=== PATIENT | male | born 1980 | race Caucasian/White ===

== ENCOUNTER 2023-12-24 08:09 | Inpatient (IN) | payer OTHER, SELFPAY ==
[2023-12-23 20:00] VITALS: BP 153/99; BMI 30.3
[2023-12-23 20:14] LABS: Urine Albumin Trace (Neg - Trace); Urine Bilirubin Negative (Negative); Urine Character Clear (Clear); Urine Color Amber; Urine Glucose Negative (Negative); Urine Ketone 2+ (Negative); Urine Leukocyte Negative (Negative); Urine Nitrite Negative (Negative); Urine Occult Blood Trace (Negative); Urine Urobilinogen 1+ (Neg - 1+)
[2023-12-23 20:22] LABS: Urine Mucus Moderate; Urine Squamous Cell 0-2 /LPF (Few)
[2023-12-23 20:23] LABS: Urine Bacteria Few (Negative); Urine Red Blood Cell 0-2 /HPF (0-2); Urine White Cell 0-2 /HPF (0-5)
[2023-12-23] MEDS: DILAUDID 1 MG IV ×2 (20:40→22:26)
[2023-12-23] MEDS: ZOFRAN 4 MG IV (20:41)
[2023-12-23 21:00] LABS: % Basophils 0.8 % (0-2); % Eosinophils 1.3 % (0-6); % Immature Granulocytes 0.3 % (0-0.5); % Lymphocytes 15.9 % (20.5-51.1); % Monocytes 9.4 % (1.7-9.3); % Neutrophils 72.3 % (42.2-75.2); Absolute Basophils 0.1 10^3/uL (0-0.2); Absolute Eosinophils 0.2 10^3/uL (0-0.7); Absolute Monocytes 1.2 10^3/uL (0.1-0.6); Absolute Neutrophils 8.9 10^3/uL (1.4-6.5); Hematocrit 48.4 % (39.0-52.0); Hemoglobin 16.8 g/dL (13.0-18.0); Mean Corp Hgb Conc. 34.7 g/dL (33.0-37.0); Mean Corpuscular Hgb 30.9 pg (27.0-31.0); Mean Platelet Volume 11.3 fL (7.4-10.4); Nucleated Red Blood Cells % 0 % (-); Platelet Count 232 10^3/uL (130-400); Red Blood Cell Count 5.44 10^6/uL (4.70-6.10); Red Cell Dist. Width 12.8 % (11.5-14.5); White Blood Cell Count 12.3 10^3/uL (4.8-10.8)
[2023-12-23 21:14] LABS: ALT (SGPT) 51 U/L (0-50); AST (SGOT) 26 U/L (17-59); Alkaline Phosphatase 86 U/L (38-126); Blood Urea Nitrogen 16 mg/dl (9-20); Calcium 10.3 mg/dl (8.4-10.2); Carbon Dioxide 26 mmol/L (22-30); Chloride 98 mmol/L (98-107); Estimated Creatinine Clearance > 125 ml/min; Glucose 120 mg/dl (70-99); Lipase 105 U/L (23-300); Sodium 136 mmol/L (135-145); Total Bilirubin 2.9 mg/dl (0.2-1.3); Total Protein 8.5 g/dl (6.3-8.2); eGFR > 60.00
[2023-12-23 21:25] LABS: Troponin I < 0.012 ng/ml
[2023-12-23 21:50] VITALS: BP 141/84
--- NOTE | 2023-12-23 22:29 | ED.GENMED ---
History of Present Illness
General
Chief Complaint: Flank Pain
Source: patient
Exam Limitations: none
Time Seen by Provider: 12/23/23 20:21
Travel History
Have you had any contact with someone who has COVID-19?: No
Do you have any symptoms of coronavirus? Fever > 100 degrees, chills, cough, shortness of breath, sore throat, loss of taste or smell, muscle aches, or headache?: No
History of Present Illness
History of Present Illness:
43-year-old male who presents with pain in the right flank/right chest wall area that radiates up to his right shoulder. Patient states he began to not feel very well 2 days ago. He is a little bit flushed. States he did not have much pain at
first but then last night began to get some pain. Was seen at urgent care and had a chest x-ray. He had a mildly elevated white count. Patient states his pain is persistent today was a little bit worse. Pain is worse when he takes deep breath he
does feel little bit short of breath. Has a little diarrhea. He does travel a good amount for work in the car. Occasionally vapes.
Past History
Past History
ED Past Medical History: Other (Migraines)
Social History
Alcohol: Daily
Phy Exam
Physical Exam
Physical Exam:
CONSTITUTIONAL Patient alert and oriented to person, place and time. Moderate pain distress. Vital signs reviewed.
HEAD atraumatic, normocephalic.
EYES eyelids normal to inspection, Pupils equally round and reactive to light, Extraocular muscles intact, Conjunctiva normal, Sclera normal.
NECK normal range of motion, Trachea midline, no jugular venous distention.
RESPIRATORY CHEST No respiratory distress noted, Chest expansion equal
CARDIOVASCULAR regular and tachycardic.
ABDOMEN abdomen nontender, Bowel sounds normal. No distention.
BACK normal inspection, no obvious deformities, no CVA tenderness
UPPER EXTREMITY range of motion normal, Motor strength normal, no cyanosis, no edema.
LOWER EXTREMITY range of motion normal, Motor strength normal, no cyanosis, no edema.
NEURO Speech normal, No focal motor deficits, Marion coma scale 15, Memory normal, Cranial Nerves intact to screening exam.
SKIN skin warm, dry, and normal in color.
PSYCHIATRIC patient oriented to person place and time, Normal affect.
Course
Orders/Labs/Results
Orders:
Orders
12/23/23 20:08
Urinalysis Reflex To Culture Urgent
Date Specimen was Collected: 12/23/23
Time Specimen was Collected: 20:06
Urine Microscopic Reflex Cult Urgent
12/23/23 20:33
Electrocardiogram (*1) Stat
Reason for Study: Other
Other Reason for Exam: chest pain
CT Pe/abd/pel W Urgent
Reason For Exam: R cp, recent travel
Cardiac Monitoring- Treatment ONCE
EKG- Treatment ONCE
HYDROmorphone [Dilaudid] 1 mg IV NOW STA
Ondansetron Injectable [Zofran] 4 mg IV NOW STA
12/23/23 20:54
Complete Blood Count/With Diff Urgent
Comprehensive Metabolic Panel Urgent
Lipase Urgent
Troponin I Urgent
12/23/23 22:24
HYDROmorphone [Dilaudid] 1 mg .ROUTE .STK-MED ONE
12/23/23 22:25
HYDROmorphone [Dilaudid] 1 mg IV NOW STA
12/23/23 22:26
PTT Urgent
Prothrombin Time Urgent
12/23/23 22:31
Heparin 9,000 units IV NOW STA
Nursing to Place Non Medication Order As Directed
Physician Order: PTT 6 hours after initial start of Heparin infusion
Above order entered?: Yes
12/23/23 22:45
Heparin 33585 Units/250 ml 25,000 units in 250 ml IV PER PROTOCOL
Weight to be used for heparin protocol in kilograms (kg):: 112.945
Protocol:: DVT/PE
PTT Goal Range to be used:: PTT 73 to 111 seconds
Order type:: Initial
INITIAL Infusion Dose (UNITS/KG/hr) & then follow protocol:: 18 units/kg/hr
Infusion Dose in UNITS/hr & then follow protocol (UNITS/hr):: 2,000
INFUSION RATE in mL/hr & then follow protocol (mL/hr):: 20
For DVT/PE algorithm, re-bolus for low PTT?: Yes
PTT less than or equal to 64 seconds:: Re-bolus 80 units/kg (max 10,000units). Increase by 500 units/hr
(+ 5mL/hr)
PTT 64.1 to 72.9 seconds:: Re-bolus 40 units/kg (max 5,000 units). Increase by 200 units/hr
(+ 2mL/hr)
PTT 73 to 111 seconds:: Target Range. No change in rate.
PTT 111.1 to 130.9 seconds:: Decrease rate by 200 units/hr (- 2 mL/hr)
PTT 131 to 199.9 seconds:: HOLD for 1 hr. Then decrease by 400 units/hr (- 4mL/hr)
PTT greater than or equal to 200 seconds:: HOLD for 2 hrs & Notify Provider. Then decrease by 500 units/hr
(- 5mL/hr)
Lab follow-up:: Each change, PTT q6h until 2 consecutive are therapeutic. Then
PTT daily.
12/23/23 22:49
Heparin [id number] Units/250 ml 25,000 units in 250 ml .ROUTE .STK-MED
12/23/23 22:59
Heparin 9,000 units IV PRN PRN
12/23/23 23:00
Heparin 4,500 units IV PRN PRN
12/23/23 23:16
Admit/Transfer Patient As Directed
Co-Sign Provider:
Level of Care: Observation services
Assign to:: Telemetry
Physician / Group: bryan
Diagnosis: PE
Reason for Telemetry: Chest Pain syndromes
Date to Stop Telemetry: 12/25/23
Time to Stop Telemetry: 11:00
12/23/23 23:17
Code Status As Directed
Resuscitation Status: Full Code
12/24/23 00:45
Echo 2D MMode Color/Doppler Routine
Reason for Study: RH strain, PE
Consult Notification Routine
Specialty to Notify: Pulmonary
PULMONARY CONSULT Routine
Consulting Provider: Blu Barnett
Was physician already notified: No
Reason for consult: PE
VTE Contraindication Routine
VTE Mechanical Device Contraindication: Medical Contraindication
Pharmocologic Contraindication: Medical Contraindication
Heparin Protocol- PTT Orders As Directed
PTT per Heparin protocol: -Obtain CBC and baseline PTT - if not already collected.
-Obtain PTT 6 hours from start of infusion. Then, every 6 hours until 2 consecutive
PTT's are therapeutic. Then, PTT Daily.
-With each rate change, obtain PTT every 6 hours until 2 consecutive PTT's are
therapeutic. Then, PTT Daily.
Activity As Directed
Activity Level: As Tolerated
Notify MD As Directed
Notify physician if: PTT is greater than or equal to 200.
Vital Signs As Directed
Frequency: Per unit guidelines
Venous Doppler Lwr Ext Bilat [US Periph Venous LOWER Ext Fredy] Urgent
Comment:
Reason For Exam: PE
12/24/23 06:00
Complete Blood Count/With Diff IN AM
Comprehensive Metabolic Panel IN AM
12/24/23 Dinner
Regular
12/25/23 06:00
Complete Blood Count/No Diff Q2D
Comment: notify provider: Platelet count < 130,000 or decrease by 50% from baseline
12/25/23 11:00
DC Protocol for Telemetry ONCE
12/27/23 06:00
Complete Blood Count/No Diff Q2D
Comment: notify provider: Platelet count < 130,000 or decrease by 50% from baseline
12/29/23 06:00
Complete Blood Count/No Diff Q2D
Comment: notify provider: Platelet count < 130,000 or decrease by 50% from baseline
12/31/23 06:00
Complete Blood Count/No Diff Q2D
Comment: notify provider: Platelet count < 130,000 or decrease by 50% from baseline
01/02/24 06:00
Complete Blood Count/No Diff Q2D
Comment: notify provider: Platelet count < 130,000 or decrease by 50% from baseline
01/04/24 06:00
Complete Blood Count/No Diff Q2D
Comment: notify provider: Platelet count < 130,000 or decrease by 50% from baseline
01/06/24 06:00
Complete Blood Count/No Diff Q2D
Comment: notify provider: Platelet count < 130,000 or decrease by 50% from baseline
01/08/24 06:00
Complete Blood Count/No Diff Q2D
Comment: notify provider: Platelet count < 130,000 or decrease by 50% from baseline
Abnormal Lab Results
12/23/23 12/23/23
20:08 20:54
WBC 12.3 H 10^3/uL
(4.8-10.8)
MPV 11.3 H fL
(7.4-10.4)
Absolute Neuts (auto) 8.9 H 10^3/uL
(1.4-6.5)
Absolute Monos (auto) 1.2 H 10^3/uL
(0.1-0.6)
Lymphocytes % 15.9 L %
(20.5-51.1)
Monocytes % 9.4 H %
(1.7-9.3)
Glucose 120 H mg/dl
(70-99)
Calcium 10.3 H mg/dl
(8.4-10.2)
Total Bilirubin 2.9 H mg/dl
(0.2-1.3)
ALT 51 H U/L
(0-50)
Total Protein 8.5 H g/dl
(6.3-8.2)
Urine Ketones 2+ A
(Negative)
Ur Occult Blood Reflex Trace A
(Negative)
Urine Bacteria (Reflex) Few A
(Negative)
12/23/23 20:54
12/23/23 20:54
Vital Signs
Initial and Last Documented VS:
Initial Vital Signs
Temp Pulse Resp BP Pulse Ox
98.7 F 108 20 153/99 98
12/23/23 20:00 12/23/23 20:00 12/23/23 20:00 12/23/23 20:00 12/23/23 20:00
Last Documented Vital Signs
Temp Pulse Resp BP Pulse Ox
98.5 F 94 19 141/92 95
12/24/23 00:43 12/24/23 00:43 12/24/23 00:43 12/24/23 00:43 12/24/23 00:43
MDM/Problems Addressed
Differential Diagnosis Includes:
Pneumothorax, pneumonia, UTI/pyelonephritis, nephrolithiasis
MDM/Problems Addressed:
Bilateral pulmonary emboli
*Radiology
Radiology exam reviewed: preliminary read by ED provider (Bilateral pulmonary emboli noted)
*Pulse Oximetry
Patient hypoxic: no
*EKG
Interpreted by ED Provider?: Yes
Interpretation: abnormal
Rate: tachycardiac
Rhythm: sinus
Ischemia: non-specific ST changes
*Shoelace Tipping Machine Operator Interpretation
Rate: tachycardiac
Interpretation: abnormal
Rhythm: sinus
*Critical Care Note
Total Time (30-74mins, 75-104mins- exclusive of procedures): 40 minutes
Data Reviewed
Source: patient and significant other
Prescriptions/Medications Considered But Not Given:
Considered IR evaluation but no right heart strain by CT
Patient Management
Discussion with other providers: Hospitalist and Radiologist
Escalation/DeEscalation of care consider admission/obs:
Patient adds that he has had some left calf pain on reassessment. Bilateral pulmonary emboli. Hemodynamically stable. Admit
ED Attending Note
-
Portions of this chart may have been created with voice recognition software.� Occasional wrong word or��sound alike� substitutions may have occurred due to the inherent limitations of voice recognition software.
Discharge Plan
Departure
Patient Disposition: Admit
Date of Disposition: 12/23/23
Time of Disposition: 22:34
Admit to: Telemetry
Presentation/result/management discussed w/ accepting MD/DO: Hospitalist
Discharge Problem:
Bilateral pulmonary embolism
Interventions
Interventions:
*Risk Screen - Suicide Last Done: 12/23/23 20:00
*General Assessment Last Done: 12/24/23 00:32
*Neglect/Abuse Screening Last Done: 12/23/23 20:00
ED- Fall Risk Assessment Last Done: 12/23/23 20:00
*ED COVID-19 Vaccine History Last Done: 12/24/23 00:32
*Nursing Disposition Last Done: 12/24/23 00:32
XQ-Smraal-Pmmebtkxre Assessment Last Done: 12/23/23 20:46
ED-Male Genitourinary Assessment Last Done: 12/23/23 20:46
Discharge Date and Time
Discharge Date/Time: 12/24/23 00:33
[2023-12-23 22:47] LABS: APTT 25.6 Sec (23.4-35.0); INR 1.12; PT 14.4 Sec (11.4-14.6)
[2023-12-23] MEDS: HEPARIN 9000 UNITS IV (23:18)
[2023-12-23] MEDS: HEPARIN 25000 UNITS/250 ML IV (23:19)
--- NOTE | 2023-12-23 23:22 | HPS.HSE ---
Addendum entered and electronically signed by Urmila Rao MD 12/23/23 23:33:
History of migraines.
Original Note:
Family Physician
-
Family Physician: Jf Jacques
Chief Complaint
-
right flank pain
History of Present Illness
43-year-old male no past medical history presenting with right flank pain radiating up to his chest over the past few days. Pain is worse with deep breaths. He is having trouble taking a full breath. Denies dizziness or syncope. He has felt sick
over the past 2 days and did have diarrhea over the past 2 days which was particularly bad today. He went to urgent care today due to the pain and had chest x-ray performed which was negative. He was started on azithromycin today which he thinks
exacerbated the diarrhea. He did have some left lower extremity cramping behind the knee over the past week.
He did have sushi 2 days ago. Denies any abdominal pain associated with the diarrhea.
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 No recent surgeries. His grandfather had a stroke but no other family history of blood clots.
He does drink at least 2 drinks 4 times a week. He did used to smoke as a teenager and vape intermittently but quit a year ago.
Medical History
Past Medical History
Past Medical History: Reports None
Past Surgical History: Reports Other (hernia surgery, )
Social History
Tobacco: Former Smoker
Alcohol: Occasional
Drug: None
Family History
Family History: Not pertinent
Allergies / Home Medications
Allergies reflects when Allergies were last updated in [employer].
Home Medications with original date entered in [employer]
Allergy/Medication List:
Allergies
Allergy/AdvReac Type Severity Reaction Status Date / Time
No Known Allergies Allergy Unverified 12/23/23 19:59
Home Medications
azithromycin 250 mg tablet 0 mg PO .COMPLEX 12/23/23
ibuprofen 200 mg capsule 600 mg PO Q6H PRN mild pain/fever 12/23/23
Review of Systems
-
History Source: Patient
A 12 point ROS was completed and negative except as noted: Yes
Constitutional: Reports No Symptoms
EENT: Reports No Symptoms
Respiratory: Reports See HPI
Cardiac: Reports No Symptoms
Abdomen/GI: Reports No Symptoms
: Reports No Symptoms
Musculoskeletal: Reports No Symptoms
Skin: Reports No Symptoms
Neurological: Reports No Symptoms
Endocrine: Reports No Symptoms
Hematologic/Lymphatic: Reports No Symptoms
Psych: Reports No Symptoms
Physical Exam
Vital Signs
Vital Signs
Temp Pulse Resp BP Pulse Ox
98.7 F 84 14 141/84 96
12/23/23 20:00 12/23/23 21:50 12/23/23 21:50 12/23/23 21:50 12/23/23 21:50
Physical Exam
General: Well Developed, Well Nourished and No Apparent Distress
HEENT: NormoCephalic, Moist mucous membranes and Atraumatic
Respiratory: Clear
Cardiac: S1/S2 and Regular Rhythm; No Murmur or Rub
GI: Soft, Non Tender, Non Distended and Normal Bowel Sounds; No Organomegaly
Rectal: Deferred by Provider
Musculoskeletal: No Clubbing, No Cyanosis and No Edema
Skin: No Rash
Neuro: Nonfocal/grossly intact
Laboratory Results
-
12/23/23 20:54
12/23/23 20:54
Laboratory Results
PT 14.4 Sec (11.4-14.6) 12/23/23 22:26
INR 1.12 12/23/23 22:26
APTT 25.6 Sec (23.4-35.0) 12/23/23 22:26
Total Bilirubin 2.9 mg/dl (0.2-1.3) H 12/23/23 20:54
AST 26 U/L (17-59) 12/23/23 20:54
ALT 51 U/L (0-50) H 12/23/23 20:54
Alkaline Phosphatase 86 U/L (38-126) 12/23/23 20:54
Troponin I < 0.012 ng/ml 12/23/23 20:54
Lipase 105 U/L (23-300) 12/23/23 20:54
Data Reviewed
-
Lab Data: Labs Reviewed by me
Old Records: Reviewed
Impression/Plan
-
IMPRESSION:
PLAN:
# Extensive bilateral pulmonary emboli, no obvious provoking factor
# Likely left lower extremity DVT
-Troponin negative
-No evidence of right heart strain on CT scan
-Heparin drip
-Check venous ultrasound
-Check echo
-Pulmonology consulted
# Gastroenteritis exacerbated by antibiotic today
-CT abdomen pelvis shows fluid-filled colon consistent with diarrhea
-Continue to monitor for diarrhea
-Stop azithromycin
Full code
DVT prophylaxis-heparin drip
Regular diet
[2023-12-24 00:43] VITALS: BP 141/92; BMI 30.4
[2023-12-24] MEDS: DILAUDID 0.5 MG IV ×3 (00:54→09:52)
[2023-12-24 03:02] VITALS: BP 121/82
[2023-12-24 05:38] LABS: % Basophils 0.8 % (0-2); % Eosinophils 1.6 % (0-6); % Immature Granulocytes 0.3 % (0-0.5); % Lymphocytes 23.5 % (20.5-51.1); % Monocytes 10.2 % (1.7-9.3); % Neutrophils 63.6 % (42.2-75.2); Absolute Basophils 0.1 10^3/uL (0-0.2); Absolute Eosinophils 0.2 10^3/uL (0-0.7); Absolute Lymphocytes 2.7 10^3/uL (1.2-3.4); Absolute Monocytes 1.2 10^3/uL (0.1-0.6); Absolute Neutrophils 7.3 10^3/uL (1.4-6.5); Hematocrit 44.9 % (39.0-52.0); Hemoglobin 15.4 g/dL (13.0-18.0); Mean Corp Hgb Conc. 34.3 g/dL (33.0-37.0); Mean Corpuscular Hgb 30.7 pg (27.0-31.0); Mean Corpuscular Volume 89.4 fL (80.0-94.0); Mean Platelet Volume 11.2 fL (7.4-10.4); Nucleated Red Blood Cells % 0 % (-); Platelet Count 212 10^3/uL (130-400); Red Blood Cell Count 5.02 10^6/uL (4.70-6.10); Red Cell Dist. Width 12.7 % (11.5-14.5); White Blood Cell Count 11.5 10^3/uL (4.8-10.8)
[2023-12-24 05:49] LABS: APTT 56.1 Sec (23.4-35.0)
[2023-12-24] MEDS: HEPARIN 9000 UNITS IV (06:09)
[2023-12-24 06:41] LABS: ALT (SGPT) 37 U/L (0-50); AST (SGOT) 24 U/L (17-59); Albumin 4.3 g/dl (3.5-5.0); Alkaline Phosphatase 90 U/L (38-126); Blood Urea Nitrogen 13 mg/dl (9-20); Calcium 9.8 mg/dl (8.4-10.2); Carbon Dioxide 20 mmol/L (22-30); Chloride 100 mmol/L (98-107); Estimated Creatinine Clearance > 125 ml/min; Glucose 103 mg/dl (70-99); Potassium 4.3 mmol/L (3.5-5.1); Sodium 136 mmol/L (135-145); Total Bilirubin 2.6 mg/dl (0.2-1.3); Total Protein 7.3 g/dl (6.3-8.2); eGFR > 60.00
[2023-12-24 07:00] VITALS: BP 130/89
--- NOTE | 2023-12-24 07:27 | PTCARENOTE ---
Patient arrived on unit @0036 via stretcher from ED, ambulate to bed. Patient AAOx3 c/o 10/10 pain to right shoulder radiating to right lower back. Patient's skin assessment completed, oriented to unit, call lanza within reach.
--- NOTE | 2023-12-24 09:36 | CON.PUL ---
Consultation
Consultation Request
Date/Time Consultation Requested: 12/24/23
Date/Time Consultation Performed: 12/24/23
Performing Provider: Jose
Reason for Consultation: PE
Medical History
-
History of Present Illness:
43-year-old male no past medical history presenting to ER with right flank pain, worsening with deep inspiration, progressive SOB, LLE pain. He notes that he travels often for work, never had personal hsitory of VTE in past. No family history
that he is aware of.
Denies prior history of lung disease including asthma. Former smoker 1/2 PPD for about 8 years, quit 10 years ago.
There is family history of bilateral lung transplant in his GF who was a smoker and worked in the [employer] business most of his life.
CTA obtained showing extensive b/l PE, duplex with acute LLE DVT. He is admitted and placed on IV heparin.
This was transitioned to [facility] today.
Past Medical History
Past Medical History: Other (see list below)
Social History
Tobacco: Former Smoker
Alcohol: Occasional
Drug: None
Family History
Family History: Reviewed & Not Pertinent
Allergies / Home Medications
Allergies
Allergy/AdvReac Type Severity Reaction Status Date / Time
No Known Allergies Allergy Unverified 12/23/23 19:59
Home Medications
�Medication �Instructions �Recorded �Confirmed �Last Taken �Type
azithromycin 250 mg tablet 0 mg PO .COMPLEX 12/23/23 12/23/23 12/23/23 18:00 History
500 mg
ibuprofen 200 mg capsule 600 mg PO Q6H PRN mild pain/fever 12/23/23 12/23/23 12/23/23 09:00 History
Review of Systems
-
History Source: Patient
All other systems: Negative unless noted
Vitals / Labs / Diagnostic Testing
Vital Signs
Temp Pulse Resp BP Pulse Ox
98.7 F 80 16 130/89 95
12/24/23 07:00 12/24/23 07:00 12/24/23 07:00 12/24/23 07:00 12/24/23 07:00
Lab Data
12/24/23 05:30
12/24/23 05:30
Laboratory Results
12/23/23 12/24/23
22:26 05:30
PT 14.4
INR 1.12
APTT 25.6 56.1 H
Diagnostic Testing:
Physical Exam
-
HEENT: Normocephalic, Anicteric and Moist Mucous Membranes
Cardiovascular: S1/S2 and Regular Rhythm
Respiratory: Clear and Non-Labored Respirations
GI: Soft, Non Distended and Non Tender
Neurology: Awake, Alert, Oriented, AO x 3 and No Motor Deficits
Skin: Warm, Dry and Good Color
General: Comfortable and Other (NAD)
Assessment
-
43-year-old male no past medical history presenting to ER with right flank pain, worsening with deep inspiration, progressive SOB, LLE pain. He notes that he travels often for work, never had personal hsitory of VTE in past. No family history
that he is aware of. CTA obtained showing extensive b/l PE, duplex with acute LLE DVT. He is admitted and placed on IV heparin. We are consulted for eval.
Acute provoked B/L PE
Acute LLE DVT
Impaired fasting glucose
Hypercalcemia
Diarrhea
Elevated total bilirubin
+snoring
Conditions present prior to admission
Obesity
History of hernia surgery
Former smoker/vape use
Migraines
Chronic ETOH use, 2 drinks up to 4 times a week
Plan
No oxygen was needed on admission, currently saturating >90% on RA
Prior history of lung disease is not noted--
Denies prior history of lung disease including asthma.
Former smoker 1/2 PPD for about 8 years, quit 10 years ago.
There is family history of bilateral lung transplant in his GF who was a smoker and worked in the [employer] business most of his life.
Acute bilateral PE noted on CT, duplex with LLE DVT
Provoked, no family history
Imaging reviewed
Agree with IV AC, transitioned to Eliquis today
No prior ECHO for review
Can obtain baseline testing for review
No evidence of RHS per CT
Will need outpatient pulmonary evaluation in our office for PFTs and 6MWT
Reviewed with patient
Risk factors assessed for underlying sleep disordered breathing also noted, recommend outpatient PSG/sleep evaluation
Weight loss measures recommended
Obesity contributing to respiratory symptoms
We will follow
Diagnostic Data
CT CAP 12/23/23- 1. Extensive bilateral pulmonary emboli (right greater than left) as described. No CT evidence for right heart strain.
2. Fluid-filled left colon in keeping with diarrhea state. Otherwise no acute process in the abdomen or pelvis. Normal appendix.
LE Duplex 12/24/23- ACUTE NONOCCLUSIVE DEEP VENOUS THROMBOSIS in the LEFT POPLITEAL and POSTERIOR TIBIAL VEINS.
--- NOTE | 2023-12-24 10:01 | CON.ONC ---
Impression
Impression
Left lower extremity deep venous thrombosis
Extensive provoked pulmonary embolus(travel and dehydration)
GI distress post antibiotic therapy
Plan
Plan
Heparin to DOAC prefer Eliquis
Echocardiogram pending
Baseline D-dimer lupus anticoagulant, APL studies
Follow-up in the office 12 weeks
Patient History
History of Present Illness
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 The pain improved but then recurred and was associated with pleuritic chest
pain and shortness of breath. Patient presented to the emergency room was noted to have deep venous thrombosis of left popliteal and posterior tibial veins with extensive bilateral pulmonary emboli.
Past-Medical/Surgical History
Medical History
Past Medical History
Unremarkable with exception of hernia surgery
Social History
Tobacco: Former Smoker
Alcohol: Occasional 4-5 times a week
Drug: None
Family History
Family History: Not pertinent
Allergies / Home Medications
Patient Medication
�Medication �Instructions �Recorded �Confirmed �Last Taken �Type
azithromycin 250 mg tablet 0 mg PO .COMPLEX 12/23/23 12/23/23 12/23/23 18:00 History
500 mg
ibuprofen 200 mg capsule 600 mg PO Q6H PRN mild pain/fever 12/23/23 12/23/23 12/23/23 09:00 History
Active Medications
Generic Name Dose Route Start Last Admin
Trade Name Freq PRN Reason Stop Dose Admin
Heparin Sodium 9,000 units 12/23/23 22:59 12/24/23 06:09
Heparin 80 Units/Kg Iv Rebolus IV 01/20/24 22:58 9,000 units
PRN PRN Administration
PTT < OR = 64 seconds
Heparin Sodium 4,500 units 12/23/23 23:00
Heparin 40 Units/Kg Iv Rebolus IV 01/20/24 22:59
PRN PRN
PTT = 64.1 to 72.9 seconds
Hydromorphone HCl 0.5 mg 12/24/23 00:19 12/24/23 09:52
Hydromorphone 0.5 Mg/0.5 Ml Syringe IV 01/07/24 00:18 0.5 mg
Q3HPRN PRN Administration
moderate to severe pain
Heparin Sodium 25,000 units in 250 mls @ 0 mls/hr 12/23/23 22:45 12/23/23 23:19
Heparin 99303 Units/250 Ml IV 250 mls
PER PROTOCOL CATALINO Administration
Protocol
Per Protocol
Sodium Chloride 0 flush 12/24/23 01:00
Sodium Chloride 0.9% (Flush) Syringe IV 01/21/24 00:59
PER PROTOCOL CATALINO
Review of Systems
-
12 point review of systems fails to elicit additional complaints other than those noted in HPI
Physical Exam
-
Physical Exam
General: Well Developed, mild discomfort distress
HEENT: NC, Moist mucous membranes and Atraumatic
Respiratory: Clear unable to take deep inspiration due to pleuritic discomfort
Cardiac: S1/S2 and Regular Rhythm; No Murmur or Rub
GI: Soft, Non Tender, Non Distended and Normal Bowel Sounds; No Organomegaly
Musculoskeletal: No Clubbing, No Cyanosis and No Edema
Skin: No Rash
Neuro: Nonfocal/grossly intact
Labs
Lab Results
WBC 11.5 10^3/uL (4.8-10.8) H 12/24/23 05:30
RBC 5.02 10^6/uL (4.70-6.10) 12/24/23 05:30
Hgb 15.4 g/dL (13.0-18.0) 12/24/23 05:30
Hct 44.9 % (39.0-52.0) 12/24/23 05:30
MCV 89.4 fL (80.0-94.0) 12/24/23 05:30
MCH 30.7 pg (27.0-31.0) 12/24/23 05:30
MCHC 34.3 g/dL (33.0-37.0) 12/24/23 05:30
RDW 12.7 % (11.5-14.5) 12/24/23 05:30
Plt Count 212 10^3/uL (130-400) 12/24/23 05:30
MPV 11.2 fL (7.4-10.4) H 12/24/23 05:30
Abs Immat Gran (auto) 0.0 10^3/uL (0-0.05) 12/24/23 05:30
Absolute Neuts (auto) 7.3 10^3/uL (1.4-6.5) H 12/24/23 05:30
Absolute Lymphs (auto) 2.7 10^3/uL (1.2-3.4) 12/24/23 05:30
Absolute Monos (auto) 1.2 10^3/uL (0.1-0.6) H 12/24/23 05:30
Absolute Eos (auto) 0.2 10^3/uL (0-0.7) 12/24/23 05:30
Absolute Basos (auto) 0.1 10^3/uL (0-0.2) 12/24/23 05:30
Immature Gran % 0.3 % (0-0.5) 12/24/23 05:30
Neutrophils % 63.6 % (42.2-75.2) 12/24/23 05:30
Lymphocytes % 23.5 % (20.5-51.1) 12/24/23 05:30
Monocytes % 10.2 % (1.7-9.3) H 12/24/23 05:30
Eosinophils % 1.6 % (0-6) 12/24/23 05:30
Basophils % 0.8 % (0-2) 12/24/23 05:30
Creatinine 0.8 mg/dL (0.7-1.3) 12/24/23 05:30
Vital Signs
Vital Signs
Temp Pulse Resp BP Pulse Ox
98.7 F 80 16 130/89 95
12/24/23 07:00 12/24/23 07:00 12/24/23 07:00 12/24/23 07:00 12/24/23 07:00
[2023-12-24 11:00] VITALS: BP 149/93
[2023-12-24] MEDS: ELIQUIS 10 MG PO (11:16)
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
[2023-12-24 12:29] LABS: D-Dimer 2.22 ug/mlFEU (0.00-0.50)
--- NOTE | 2023-12-24 14:18 | W.PN.HOSP.TC ---
Today's Communication/Plan
-
d/c home if no RV strain on TTE
Assessment / Plan
Assessment / Plan
# Extensive bilateral pulmonary emboli, no obvious provoking factor
# Left leg DVT
-Troponin negative
-No evidence of right heart strain on CT scan
-Heparin drip
-Left leg DVT with report as above
-Echocardiogram report pending
-Pulmonology and oncology evaluated and have appreciated
-Patient to be transition to Eliquis at discharge
# Gastroenteritis exacerbated by antibiotic
-CT abdomen pelvis shows fluid-filled colon consistent with diarrhea
-Continue to monitor for diarrhea
-Stop azithromycin
Full code
DVT prophylaxis-heparin drip
More than 30 minutes spent in discharge including
Final examination of the patient
Summarizing hospital stay
Instructions for continuing care to all relevant caregivers
Preparation of discharge records, prescriptions, and referral forms
Total time spent (in minutes): 38 mins
Anticipated Discharge: Today
Subjective/Interval History
-
Date of Service: December 24, 2023
Complains of right-sided pain although manageable
Denies shortness breath/chest pain/dizziness
Objective Data
-
Labs:
Laboratory Results
12/24/23 12/24/23
05:30 12:05
WBC 11.5 H
Hgb 15.4
Hct 44.9
Plt Count 212
APTT 56.1 H 48.0 H
Sodium 136
Potassium 4.3
Chloride 100
Carbon Dioxide 20 L
BUN 13
Creatinine 0.8
Glucose 103 H
Calcium 9.8
Total Bilirubin 2.6 H
AST 24
ALT 37
Alkaline Phosphatase 90
Vital Signs:
Vital Signs
Temp Pulse Resp BP Pulse Ox
98.2 F 93 17 149/93 96
12/24/23 11:00 12/24/23 11:00 12/24/23 11:00 12/24/23 11:00 12/24/23 11:00
I&O
12/23/23 12/24/23 12/25/23
06:59 06:59 06:59
Intake Total 480 / 480
Balance 480 / 480
Review of Systems
-
Respiratory: Denies Trouble Breathing
Cardiac: Reports No Symptoms
Abdomen/GI: Reports No Symptoms
Physical Exam
-
General: No Apparent Distress and Comfortable
HEENT: Negative Oxygen
Respiratory: Clear to Auscultation
Cardiac: Regular Rhythm and S1/S2; Negative Murmur or Rub
GI: Soft, Nontender, Nondistended and Normal Bowel Sounds
Musculoskeletal: No Edema
Neuro: Awake, Alert, Oriented, No Motor Deficits and Nonfocal/Grossly Intact
Psych: Calm
[2023-12-24 15:00] VITALS: BP 146/84
[2023-12-27 01:36] LABS: Beta-2-Glycoprotein I Ab. IgA <10 SAU (<=20); Beta-2-Glycoprotein I Ab. IgG <10 SGU (<=20); Beta-2-Glycoprotein I Ab. IgM <10 SMU (<=20)
--- NOTE | 2023-12-27 15:08 | W.DCSUMMARY ---
Discharge Summary
Discharge Data
Date of Admission: 12/23/23
Date of Discharge: 12/24/23
-
Pending Results: Yes
Additional Pending Results:
Lupus anticoagulant/antiphospholipid antibody panel
Hospital Course
Discharging Physician : Dr Mehran Burnham
Disposition : Home
Primary care physician : Dr Jf Jacques
Principal Discharge diagnosis :
Bilateral pulmonary embolism
Left leg venous thrombosis provoked from travel
Gastroenteritis
Right-sided pleuritic pain
Chronic Discharge diagnosis :
Obesity
History of hernia repair
Former tobacco use
History of migraine
Alcohol use disorder
Hospital Course :
Patient is a 43-year-old male with above-mentioned past medical history with right flank pain and radiation to chest. Pain was worsening with deep breath. Patient had a CT chest PE in ER showing bilateral pulmonary embolism. A lower extremity
venous Doppler was done which was positive for left popliteal and posterior tibial vein nonocclusive thrombus. Patient was started on heparin drip for treatment. There was no clinical signs of RV strain on CT scan and on follow-up echocardiogram
as well. Patient was vitally stable and not hypoxic. Patient was evaluated by pulmonology and patient heparin drip was transitioned to Eliquis. Patient was provided pain medication for symptomatic care of right-sided pain which was pleuritic in
nature from underlying PE. At discharge patient was transition to oral Eliquis therapy. Patient to follow-up with portal administrator in office.
Of note patient also had some diarrhea in ER although no further reported episodes in hospital. CT abdomen pelvis did not show any acute abnormalities. No further testing done and was suspected to be gastroenteritis related.
Important imaging findings :
CT CAP 12/23/23
1. Extensive bilateral pulmonary emboli (right greater than left) as described. No CT evidence for right heart strain.
2. Fluid-filled left colon in keeping with diarrhea state. Otherwise no acute process in the abdomen or pelvis. Normal appendix.
LE Duplex 12/24/23- ACUTE NONOCCLUSIVE DEEP VENOUS THROMBOSIS in the LEFT POPLITEAL and POSTERIOR TIBIAL VEINS.
Procedure findings :
None
Discharge Plan
-
Patient Disposition: Home (Routine Discharge)
Discharge Diagnosis/Procedures: Bilateral PE, Left leg DVT
Condition: Fair
Diet: Regular
Activity: No strenuous activity
Driving Restrictions: No driving for 1 week
Bathing Restrictions: OK to Shower
Activity Restrictions/Additional Instructions:
Please follow up with your dermatology for routine check.
Instructions: Deep vein thrombosis - Discharge instructions, Pulmonary embolism - Discharge instructions
Referrals:
Anuel Maurice, [Active] - (follow up in office in 3 months)
Jf Jacques, [Family Provider] - in one week
Annmarie Garcia, [Active] -
(4-6 weeks, PFT
PSG)
Additional Discharge Medication Instructions: Stop taking NSAIDs ( Advil, ibuprofen, ketroloac etc)
Prescriptions:
New
oxycodone 10 mg Tablet
10 mg PO Q4HPRN PRN (Reason: sev pain) Qty: 14 0RF
Rx Instructions:
Take half tablet for moderate pain
Eliquis 5 mg tablet
5 mg PO BID Qty: 60 2RF
Rx Instructions:
2nd month and onward supply
Eliquis 5 mg tablet
See Rx Instructions .ROUTE .COMPLEX Qty: 74 0RF
Rx Instructions:
Take 2 Tablet twice daily for 7 Days THEN
Take 1 Tablet twice daily for maintenance
1st month supply
Discontinued
azithromycin 250 mg Tablet
0 mg PO .COMPLEX
Rx Instructions:
For 250 mg dose pack: take 500 mg today (day 1), then 250 mg for 4 days (days 2-5)
ibuprofen 200 mg Capsule
600 mg PO Q6H PRN (Reason: mild pain/fever)
Discharge Orders:
Discharge Patient (As Directed); Ordered 12/24/23
Ordered By: Mehran Burnham
Discharge Date and Time
Discharge Date/Time: 12/24/23 16:21
Print Language: BELARUSIAN
[2023-12-27 15:28] LABS: Cardiolipin IgA Antibody <10 APL (<=11); Cardiolipin IgM Antibody <10 MPL (<=12); Cardiolipin Igg Antibody <10 GPL (<=14)
[2023-12-29 14:16] LABS: Phosphatidylserine Ab, IgA 0 APS (0-19); Phosphatidylserine Ab, IgG 1 GPS (0-15); Phosphatidylserine Ab, IgM 2 MPS (0-21)
[2023-12-29 17:25] LABS: Anti-Xa Qualitative Interp Present (Not Present); Anticoagulant Med Neutralizati Hepzyme (Not Performed); Hexagonal Phospholipid Confirm Not Performed s (<=7.9); Neutralized PTT-LA Ratio 1.01 (<=1.20); Neutralized dRVTT Screen Ratio Not Performed (<=1.20); PTT-LA Ratio 1.74 (<=1.20); Prothrombin Time 14.1 s (12.0-15.5); Thrombin Time 62.3 s (<=19.5); dRVTT 1.1 Mix Ratio Not Performed (<=1.20); dRVTT Confirmation Ratio Not Performed (<=1.20); dRVTT Screen Ratio 1.11 (<=1.20)
== END 2023-12-24 16:21 | disposition home or self-care (01) | DRG 176 ==
LOC: 3 WEST ACU 08:09
PROVIDERS: Emergency Medicine; Internal Medicine; ADMITTING PHYSICIAN Hospitalist; ATTENDING PHYSICIAN Hospitalist; EMERGENCY PHYSICIAN Emergency Medicine; FAMILY PHYSICIAN Family Medicine; OTHER PHYSICIAN Internal Medicine; OTHER PHYSICIAN Internal Medicine Hematology & Oncology
DX: I26.99 Other pulmonary embolism without acute cor pulmonale (principal); K52.1 Toxic gastroenteritis and colitis; I82.432 Acute embolism and thrombosis of left popliteal vein; I82.442 Acute embolism and thrombosis of left tibial vein; G43.909 Migraine, unspecified, not intractable, without status migrainosus; T36.95XA Adverse effect of unspecified systemic antibiotic, initial encounter; E86.0 Dehydration; R73.01 Impaired fasting glucose; F10.10 Alcohol abuse, uncomplicated; E83.52 Hypercalcemia; E66.9 Obesity, unspecified; Y92.9 Unspecified place or not applicable; Z68.30 Body mass index [BMI] 30.0-30.9, adult; Z87.891 Personal history of nicotine dependence; Z82.3 Family history of stroke
CPT/HCPCS: 71275; 74177; 80053; 81003; 81015; 83690; 84484; 85025; 85379; 85520; 85525; 85610; 85613; 85670; 85730; 86146; 86147; 86148; 93005; 93306; 93970; 96365; 96375; 96376; 99291; Q9967

== ENCOUNTER → 2025-04-24 13:22 | Outpatient (REF) | payer BC, SELFPAY ==
[2025-04-24 14:26] LABS: D-Dimer 0.41 ug/mlFEU (0.00-0.50)
== END ==
LOC: REG 13:22
PROVIDERS: ATTENDING PHYSICIAN Nurse Practitioner Adult Health
DX: I26.99 Other pulmonary embolism without acute cor pulmonale (principal)
CPT/HCPCS: 36415; 85379; 93971

== ENCOUNTER 2025-05-29 01:10 | Emergency (ER) | payer BC, SELFPAY ==
[2025-05-29 01:18] VITALS: BP 159/103
[2025-05-29 01:31] VITALS: BMI 31.4
[2025-05-29 01:45] LABS: Hematocrit 46.8 % (39.0-52.0); Hemoglobin 15.8 g/dL (13.0-18.0); Mean Corp Hgb Conc. 33.8 g/dL (33.0-37.0); Mean Corpuscular Volume 92.5 fL (80.0-94.0); Nucleated Red Blood Cells % 0 % (-); Platelet Count 227 10^3/uL (130-400); Red Cell Dist. Width 12.2 % (11.5-14.5)
[2025-05-29 01:53] VITALS: BP 150/100
[2025-05-29 01:57] LABS: APTT 24.1 Sec (23.4-35.0)
[2025-05-29 02:00] VITALS: BP 144/95
[2025-05-29 02:05] LABS: ALT (SGPT) 68 U/L (0-50); AST (SGOT) 47 U/L (17-59); Albumin 4.5 g/dl (3.5-5.0); Alkaline Phosphatase 72 U/L (38-126); Blood Urea Nitrogen 15 mg/dl (9-20); Calcium 10.4 mg/dl (8.4-10.2); Carbon Dioxide 25 mmol/L (22-30); Chloride 105 mmol/L (98-107); Estimated Creatinine Clearance > 125 ml/min; Glucose 113 mg/dl (70-99); Potassium 3.5 mmol/L (3.5-5.1); Sodium 139 mmol/L (135-145); Total Protein 7.4 g/dl (6.3-8.2); eGFR > 60.00
[2025-05-29 02:16] LABS: Troponin I < 0.012 ng/ml
--- NOTE | 2025-05-29 02:27 | EDRN ---
Updated patient and on labs and aware he will be going to CT soon.
[2025-05-29 03:00] VITALS: BP 145/85
--- NOTE | 2025-05-29 03:04 | ED.GENMED ---
History of Present Illness
General
Chief Complaint: Chest Pain
Source: patient and family
Exam Limitations: none
Time Seen by Provider: 05/29/25 01:22
Nursing documentation reviewed up to this point in time: agreed with
History of Present Illness
History of Present Illness:
Note:
CHIEF COMPLAINT(S)
Shortness of breath and chest pain
HISTORY OF PRESENT ILLNESS
The patient is a 44-year-old male who presented with a complaint of shortness of breath. The symptoms began suddenly around 12:30 PM today. The patient reports a history of a pulmonary embolism with an unknown etiology, speculating a potential link
to a COVID-19 infection several months prior. He denies any significant family history of clotting disorders. The patient is on Eliquis (Apixaban) following a deep vein thrombosis (DVT) occurrence approximately 3 to 4 weeks ago, which was confirmed
by doppler ultrasound. He describes experiencing pain in his leg during that episode. He has been somewhat non-compliant with the prescribed 10 mg dose daily, taking between 5 to 7.5 mg due to headaches, which he attributes to his history of
migraines and cluster headaches. He was previously advised by an oncologist to remain on Eliquis due to a high D-dimer level approximately a year ago. Despite irregular adherence, he has not completely stopped the medication. He denies tobacco use.
The patient is scheduled for a scan as part of the investigation for his shortness of breath.
PAST MEDICAL AND SURGICAL HISTORY
- History of pulmonary embolism.
- History of deep vein thrombosis about 3-4 weeks ago.
- History of migraines and cluster headaches.
SOCIAL HISTORY
The patient denies use of tobacco products.
MEDICATIONS
- Eliquis (Apixaban), prescribed 10 mg daily, with self-reported intake of 5 to 7.5 mg.
PHYSICAL EXAM
General: Alert, no acute distress.
Skin: Warm, dry.
Head: Normocephalic, atraumatic.
Eye, Ears, Nose, Mouth, and Throat: Oral mucosa moist.
Neck: Supple, trachea midline.
Cardiovascular: Normal peripheral perfusion, No edema.
Respiratory: Respirations are non-labored.
Gastrointestinal: Abdomen nondistended.
Back: Normal range of motion, Normal alignment.
Musculoskeletal: Normal range of motion, normal strength.
Neurological: Alert and oriented to person, place, time, and situation, No focal neurological deficit observed.
Psychiatric: Cooperative, appropriate mood & affect.
PLAN
The patient is scheduled for imaging to investigate the cause of the current shortness of breath and assess for potential pulmonary embolism recurrence.
DIFFERENTIAL DIAGNOSIS
The Differential Diagnosis includes, in no particular order and is not limited to:
1. Recurrent pulmonary embolism.�Ruled out with CT angiogram PE study
2. Anxiety or panic attack.
3. Chronic obstructive pulmonary disease (COPD).
4. Heart failure.
5. Deep vein thrombosis leading to embolism.
6. Myocardial infarction.
7. Pleural effusion.
8. Pneumonia.
9. Asthma exacerbation.
10. Functional respiratory disorder.
CARE-UPDATE
05/29/25 - 03:05
CT chest reveals no evidence of pulmonary embolism. Continue current treatment plan without modification.
Disposition:
SUMMARY OF ENCOUNTER
The patient is a 44-year-old male who presented with complaints of chest pain and shortness of breath. He underwent a CT angiogram to rule out pulmonary embolism, which returned negative results. Additionally, two troponin tests were negative,
ruling out myocardial infarction. An electrocardiogram was conducted and showed no ischemia. The patients symptoms were managed and did not show any signs of acute distress during the stay.
DISPOSITION
The patient is to be discharged home.
ASSESSMENT
The findings including negative CT angiogram and troponin tests rule out acute pulmonary embolism and myocardial infarction. The exact cause of symptoms remains uncertain but life-threatening conditions have been excluded.
PLAN
The patient will be discharged with instructions to follow up with cardiology for further evaluation and management.
INDEPENDENT REVIEW OF LABS AND INTERPRETATION OF TESTS
- My independent review of the CT angiogram indicates no evidence of pulmonary embolism.
- My independent review of the two troponin tests indicates negative results, ruling out myocardial infarction.
MEDICATION RECONCILIATION
Patients current medication includes Apixaban, also known as Eliquis. The importance of adherence to the prescribed dosage should be reiterated during the follow-up.
MEDICAL DECISION MAKING
-Complexity of Data Reviewed: Chronic conditions affecting care include history of pulmonary embolism and deep vein thrombosis. Differential Diagnosis considered: recurrent pulmonary embolism, anxiety or panic attack, chronic obstructive pulmonary
disease (COPD), heart failure, deep vein thrombosis leading to embolism, myocardial infarction, pleural effusion, pneumonia, asthma exacerbation, and functional respiratory disorder.
-Data:
Category [address] angiogram and troponin tests were independently reviewed and interpreted to guide patient management.
-Risk:
Consideration of Admission/Observation: Escalation of care including admission/observation was considered given the complexity and risk of the patients presenting complaint and exam findings. However, ultimately I feel the patient is safe for
outpatient management with close follow-up. Reasoning: Work-up reassuring, does not reveal any acute life/organ-threatening processes, patients symptoms well controlled upon reevaluation, reexamination is reassuring, vitals are stable, patient
agreeable with discharge, reliable for follow-up.
DIAGNOSIS
Chest pain, unspecified (R07.9)
Shortness of breath (R06.02)
Past History
Past History
ED Past Medical History: Other (Migraines)
Social History
Alcohol: Daily
Phy Exam
Physical Exam
Physical Exam:
.
Scores
Heart Score for Chest Pain Patients
STEMI patient?: No
History: Moderately Suspicious
ECG: Normal
Age: </= 45 years
Risk Factors: No Risk Factors
Troponin: </= Normal Limit
Heart Score for Chest Pain Patients: 1
Heart Score Risk: 2.5% MACE over next 6 weeks
Course
Orders/Labs/Results
Orders:
Orders
05/29/25 01:11
EKG [Electrocardiogram (*1)] Urgent
Reason for Study: Tachycardia
EKG- Treatment ONCE
05/29/25 01:24
Cardiac Monitoring- Treatment ONCE
IV Insert/Care/Rem.- Treatment PRN
O2 Therapy [RESP] Urgent
Titrate/Wean O2 to maintain O2 sat greater than (%): 90
Special Instructions: Maintain sats >/=90%
Pulse Ox/spot Check [RESP] Urgent
Quantity: 1
Special Instructions: ON ROOM AIR
05/29/25 01:31
Complete Blood Count/With Diff Urgent
Comprehensive Metabolic Panel Urgent
PTT Urgent
Troponin I Urgent
05/29/25 02:04
CT Chest PE Study Urgent
Comment:
Reason For Exam: Dyspnea, CP, hx of mult PEs. current dvt
05/29/25 05:04
Troponin I Urgent
Abnormal Lab Results
05/29/25
01:31
MCH 31.2 H pg
(27.0-31.0)
MPV 11.0 H fL
(7.4-10.4)
Neutrophils % 41.9 L %
(42.2-75.2)
Glucose 113 H mg/dl
(70-99)
Calcium 10.4 H mg/dl
(8.4-10.2)
ALT 68 H U/L
(0-50)
05/29/25 01:31
05/29/25 01:31
Vital Signs
Initial and Last Documented VS:
Initial Vital Signs
Temp Pulse Resp BP Pulse Ox
98 F 86 24 159/103 98
05/29/25 01:18 05/29/25 01:18 05/29/25 01:18 05/29/25 01:18 05/29/25 01:18
Last Documented Vital Signs
Temp Pulse Resp BP Pulse Ox
98 F 61 16 147/95 95
05/29/25 01:18 05/29/25 05:45 05/29/25 05:45 05/29/25 05:00 05/29/25 05:45
*Pulse Oximetry
SaO2: 97
Oxygen Mode of Delivery: Room air
Patient hypoxic: no
*Critical Care Note
Total Time (30-74mins, 75-104mins- exclusive of procedures): Not Applicable
Update Note
Update Note:
NAME: KAREN DAVIS
DATE OF EXAM: 05/29/2025
Patient No: [id number]
Physician: ELIOT^Deisi
Date of : 1980
Past Medical History (entered by Technologist):
Reason For Exam (entered by Technologist):
Other Notes (entered by Technologist): Pt arrives c/o SOB, chest tightness that started about an hour ago. Has hx of PE, recent DVT and is on eliquis.
Prior sent
Additional Information (per [facility] Radiologist): Shortness of breath. Chest tightness
CTA chest PE
Comparison: CTA chest 12/23/2023
IMPRESSION:
Fair contrast opacification of the pulmonary arteries
There is some limitation due to respiratory motion
No appreciable pulmonary embolus to the larger segmental pulmonary arterial level
Assessment of the smaller peripheral vasculature is limited
No appreciable acute thoracic aortic pathology on this non-ECG gated exam
Normal size heart
Pericardium appears within normal limits
No evidence for pneumonia or pulmonary edema
No pleural effusion or pneumothorax
No acute abnormality in the visualized upper abdomen
Case finalized on 05/29/25 03:01 EDT
Stephen Monroe M.D.
This report has been electronically signed and verified by the Radiologist whose name is printed above.
ED Attending Note
-
Portions of this chart may have been created with voice recognition software.� Occasional wrong word or��sound alike� substitutions may have occurred due to the inherent limitations of voice recognition software.
Discharge Plan
Departure
Patient Disposition: Home (Routine Discharge)
Date of Disposition: 05/29/25
Time of Disposition: 06:20
Patient with high blood pressure during this ER visit?: Yes
Condition: Good
Discharge Problem:
Chest pain
Instructions: Chest Pain DCA Follow Up, BLOOD PRESSURE
Prescriptions:
No Action
oxycodone 10 mg Tablet
10 mg PO Q4HPRN PRN (Reason: sev pain) Qty: 14 0RF
Rx Instructions:
Take half tablet for moderate pain
Eliquis 5 mg tablet
5 mg PO BID Qty: 60 2RF
Rx Instructions:
2nd month and onward supply
Eliquis 5 mg tablet
See Rx Instructions .ROUTE .COMPLEX Qty: 74 0RF
Rx Instructions:
Take 2 Tablet twice daily for 7 Days THEN
Take 1 Tablet twice daily for maintenance
1st month supply
Referrals:
Felipe Walsh MD [Family Provider, Family Practice]
Activity Restrictions/Additional Instructions:
Thank You for choosing [facility].
It was a pleasure meeting you and taking part in your care. We hope for your continued healing and wellness.
Please read discharge instructions in their entirety. However, they are for general education and may not describe your exact diagnosis at discharge. Information on your ER visit and medical conditions were discussed with you along with appropriate
follow up information...
If indicated, please take your medications as instructed and indicated on discharge paperwork.
Please schedule a follow up appointment as directed. Call to schedule an appointment
Please return to the emergency department with ANY change in, persisting, or worsening of symptoms. If any of your symptoms do not improve, or persist, or become more severe within 6-12 hours, please return to the emergency department for further
care.
Please return to the emergency department if you develop a headache, neck pain/stiffness, fever greater than 100.4F, chest pain, shortness of breath, persistent nausea, vomiting, slurred speech, difficulty walking, numbness/tingling, weakness, signs
of infection or any other symptoms that are worrisome to you.
If you have any questions or concerns please do not hesitate to call the Hospital at .
Interventions
Interventions:
*Risk Screen - Suicide Last Done: 05/29/25 01:18
*General Assessment Last Done: 05/29/25 01:18
*Neglect/Abuse Screening Last Done: 05/29/25 01:18
*ED- Fall Risk Assessment Last Done: 05/29/25 02:04
*ED COVID-19 Vaccine History Last Done: 05/29/25 02:04
*ED Influenza Vaccine History Last Done: 05/29/25 02:04
ED- Cardiac Assessment Last Done: 05/29/25 02:04
Discharge Date and Time
Print Language: UPPER SORBIAN
[2025-05-29 04:00] VITALS: BP 152/92
[2025-05-29 05:00] VITALS: BP 147/95
[2025-05-29 05:50] LABS: Troponin I < 0.012 ng/ml
--- NOTE | 2025-05-29 05:55 | EDRN ---
Patient was updated on the labs and plan for discharge
== END 2025-05-29 06:30 | disposition home or self-care (01) ==
LOC: EMR 01:10
PROVIDERS: EMERGENCY PHYSICIAN Student in an Organized Health Care Education/Training Program; FAMILY PHYSICIAN Family Medicine
DX: R07.9 Chest pain, unspecified (principal); R03.0 Elevated blood-pressure reading, without diagnosis of hypertension; Z79.01 Long term (current) use of anticoagulants; Z86.711 Personal history of pulmonary embolism; Z86.718 Personal history of other venous thrombosis and embolism; T45.516A Underdosing of anticoagulants, initial encounter; Z91.128 Patient's intentional underdosing of medication regimen for other reason
CPT/HCPCS: 99284; 71275; 80053; 84484; 85025; 85730; 93005; Q9967